=== PATIENT | male | born 1995 | race Caucasian/White ===

== ENCOUNTER → 2020-11-25 | Emergency (ER) | payer BC ==
[~2020-11-25] VITALS: Ht 180.3 cm; Wt 72.7 kg
[2020-11-25 03:48] VITALS: BP 112/76; PULSE 93; TEMP 98.7
== END ==
LOC: COL.ER 02:20
DX: S60.512A Abrasion of left hand, initial encounter (principal); S60.511A Abrasion of right hand, initial encounter; S30.811A Abrasion of abdominal wall, initial encounter; S99.911A Unspecified injury of right ankle, initial encounter; V00.131A Fall from skateboard, initial encounter